=== PATIENT | female | born 1955 | race Caucasian/White ===

== ENCOUNTER → 2017-09-13 | Outpatient (CLI) | payer OTHER | LOC: FIMAGING 14:26 | PROVIDERS: ATTEND Family Medicine | DX: Z12.2 Encounter for screening for malignant neoplasm of respiratory organs (principal); J43.2 Centrilobular emphysema; R91.1 Solitary pulmonary nodule; I70.0 Atherosclerosis of aorta; F17.200 Nicotine dependence, unspecified, uncomplicated ==

== ENCOUNTER → 2018-01-26 | Outpatient (CLI) | payer OTHER | LOC: BMCIMAGING 15:18 | PROVIDERS: ATTEND Family Medicine | DX: S32.10XA Unspecified fracture of sacrum, initial encounter for closed fracture (principal); W19.XXXA Unspecified fall, initial encounter ==

== ENCOUNTER 2018-01-31 10:06 | Inpatient (IN) | payer OTHER ==
[2018-01-31] MEDS ORDERED: DIAZEPAM 5 MG/ML 1 ML SYR IVP ONE (10:13)
--- NOTE | 2018-01-31 10:17 | EDPHY ---
H & P Time Seen by Provider: 01/31/18 10:07 HPI/ROS: CHIEF COMPLAINT: Gluteal pain HISTORY OF PRESENT ILLNESS: Patient is a 62-year-old female who states that 1 week ago she slipped on the step and fell into a sitting position. She thought she was fine at the time but the next day had increasing pain. She presented to the urgent care where x-rays were done and she is diagnosed with a coccyx fracture. She was prescribed Flexeril. She states that she has had increasing daily pain since that time. She states that she is having spasming in her gluteus muscles and severe pain if she tries to move. She is able to move her legs. She has not had any bowel or bladder incontinence or retention but is extremely hesitant to get up to go to the bathroom because of pain. No focal weakness or paresthesias. No vomiting. No diarrhea. She was given 100 mcg of fentanyl by EMS. She does not have any lumbar thoracic or cervical spine pain or tenderness. REVIEW OF SYSTEMS: Constitutional: denies: chills, fever, recent illness, recent injury EENTM: denies: blurred vision, double vision, nose congestion Respiratory: denies: cough, shortness of breath Cardiac: denies: chest pain, irregular heart rate, lightheadedness, palpitations Gastrointestinal/Abdominal: denies: abdominal pain, diarrhea, nausea, vomiting, blood streaked stools Genitourinary: denies: dysuria, frequency, hematuria, pain Musculoskeletal: See HPI Skin: denies: lesions, rash, jaundice, bruising Neurological: denies: headache, numbness, paresthesia, tingling, dizziness, weakness Hematologic/Lymphatic: denies: blood clots, easy bleeding, easy bruising Immunologic/allergic: denies: HIV/AIDS, transplant EXAM: GENERAL: Moderate distress. HEAD: Atraumatic, normocephalic. EYES: Pupils equal round and reactive to light, extraocular movements intact, sclera anicteric, conjunctiva are normal. ENT: TMs normal, nares patent, oropharynx clear without exudates. Moist mucous membranes. NECK: Normal range of motion, supple without lymphadenopathy or JVD. LUNGS: Breath sounds clear to auscultation bilaterally and equal. No wheezes rales or rhonchi. HEART: Regular rate and rhythm without murmurs, rubs or gallops. ABDOMEN: Soft, nontender, normoactive bowel sounds. No guarding, no rebound. No masses appreciated. BACK: Gluteal pain, tender over the tailbone and pain moving or rolling. No CVA tenderness, no spinal tenderness, step-offs or deformities EXTREMITIES: Normal range of motion, no pitting or edema. No clubbing or cyanosis. NEUROLOGICAL: Cranial nerves II through XII grossly intact. Normal speech, normal gait. 5/5 strength, normal movement in all extremities, normal sensation PSYCH: Normal mood, normal affect. SKIN: Warm, dry, normal turgor, no visible rashes or lesions. Source: Patient Exam Limitations: No limitations - Medical/Surgical History Hx Asthma: No Hx Chronic Respiratory Disease: No Hx Diabetes: No Hx Cardiac Disease: No Hx Renal Disease: No Hx Cirrhosis: No Hx Alcoholism: No Hx HIV/AIDS: No Hx Splenectomy or Spleen Trauma: No - Family History Significant Family History: No pertinent family hx - Social History Smoking Status: Never smoked Alcohol Use: Sober Constitutional: Initial Vital Signs Temperature (C) 36.7 C 01/31/18 10:10 Heart Rate 104 H 01/31/18 10:10 Respiratory Rate 18 01/31/18 10:10 Blood Pressure 134/89 H 01/31/18 10:10 O2 Sat (%) 95 01/31/18 10:10 O2 Delivery Mode Room Air O2 (L/minute) 2 Allergies/Adverse Reactions: No Known Allergies Allergy (Unverified 01/31/18 10:17) Home Medications: Medication Instructions Recorded Aspirin [Aspirin 325 mg (*)] 325 mg PO DAILY 01/31/18 Cyclobenzaprine [Flexeril 10 MG 10 mg PO TID PRN 01/31/18 (*)] Ibuprofen [Motrin (*)] 200 mg PO Q4-6PRN PRN 01/31/18 Multivitamins [Multivitamin (*)] 1 each PO DAILY 01/31/18 Tretinoin [Retin-A] 1 nayla TP DAILY 01/31/18 Medical Decision Making - Diagnostics Imaging: Discussed imaging studies w/ tour counselor Radiologist ED Course/Re-evaluation: 12:15 p[address]. we discussed the CT results. The patient and are reassured. She does not have trouble urinating. She is able to control her urination. She feels much better after Valium. I will prescribe her this to take at home. We discussed indications for returning. We discussed follow-up. Patient is having trouble getting up and out of bed, I will admit her for pain control. Differential Diagnosis: Partial list of the Differential diagnosis considered include but were not limited to; muscle spasm, tailbone fracture, pelvic fracture, lumbar fracture and although unlikely based on the history and physical exam, I also considered spinal cord injury, neuropathy, infection. I discussed these differential diagnoses and the plan with the patient as well as the usual and expected course. The patient understands that the diagnosis is provisional and that in medicine we are not always correct and that further workup is often warranted. Usual and customary warnings were given. All of the patient's questions were answered. The patient was instructed to return to the emergency department should the symptoms at all worsen or return, otherwise to followup with the physician as we discussed. - Data Points Laboratory Results: Laboratory Results 01/31/18 16:50 Medications Given: Acetaminophen (Tylenol) 1,000 mg PO TID [facility] Stop: 07/30/18 21:59 Last Admin: 02/02/18 09:18 Dose: Not Given Diazepam (Valium) 5 mg PO Q6HRS PRN PRN Reason: Anxiety, Able to Take PO Stop: 07/30/18 16:31 Last Admin: 02/02/18 12:02 Dose: 5 mg Enoxaparin Sodium (Lovenox) 40 mg SC DAILY [facility] Stop: 07/31/18 08:59 Last Admin: 02/02/18 09:02 Dose: 40 mg Ketorolac Tromethamine (Toradol) 15 mg IVP Q6HRS [facility] Stop: 02/06/18 00:00 Last Admin: 02/02/18 12:04 Dose: Not Given Methylprednisolone (Medrol) 4 mg PO 0730,1300,1900,2100 [facility] Stop: 02/02/18 21:01 Last Admin: 02/02/18 13:59 Dose: 4 mg Miscellaneous Information (Patch Removal) 1 ea TD DAILY21 [facility] Stop: 07/31/18 20:59 Last Admin: 02/01/18 23:03 Dose: Not Given Miscellaneous Medication (Tretinoin [Retin-A]) 1 nayla TP DAILY [facility] Stop: 07/31/18 08:59 Last Admin: 02/02/18 09:04 Dose: Not Given Miscellaneous Medication (Icy Hot Lidocaine/Menthol 4%/1% Patch) 1 patch TD DAILY [facility] Stop: 07/31/18 09:44 Last Admin: 02/02/18 09:03 Dose: 1 patch Multivitamins (Tab-A-Debbie) 1 each PO DAILY [facility] Stop: 07/31/18 08:59 Last Admin: 02/02/18 09:03 Dose: 1 each Nicotine (Nicoderm Cq) 21 mg TD DAILY [facility] Stop: 07/30/18 17:14 Last Admin: 02/02/18 09:04 Dose: 21 mg Oxycodone HCl (Oxycodone Ir) 5 mg PO Q6 PRN PRN Reason: Pain, Severe Able to Take PO Stop: 02/10/18 16:52 Last Admin: 02/02/18 10:32 Dose: 5 mg Polyethylene Glycol (Miralax) 17 gm PO DAILY PRN; Protocol PRN Reason: Constipation, patient prefers Stop: 07/30/18 19:25 Last Admin: 02/01/18 15:59 Dose: 17 gm Senna/Docusate Sodium (Senokot-S) 1 - 2 tab PO BID [facility] PRN Reason: Protocol Stop: 07/30/18 20:59 Last Admin: 02/02/18 09:02 Dose: 2 tab Discontinued Medications Diazepam (Valium) 5 mg IVP EDNOW ONE Stop: 01/31/18 10:14 Last Admin: 01/31/18 10:30 Dose: 5 mg Hydromorphone HCl (Dilaudid) 0.5 mg IVP EDNOW ONE Stop: 01/31/18 12:44 Last Admin: 01/31/18 12:49 Dose: 0.5 mg Methylprednisolone (Medrol) 8 mg PO BID@1700,2100 [facility] Stop: 01/31/18 21:01 Last Admin: 01/31/18 21:45 Dose: 8 mg Methylprednisolone (Medrol) 4 mg PO BID@1800,1900 [facility] Stop: 01/31/18 19:01 Last Admin: 01/31/18 19:17 Dose: 4 mg Methylprednisolone (Medrol) 4 mg PO 0730,1300,1900 [facility] Stop: 02/01/18 19:01 Last Admin: 02/01/18 20:20 Dose: 4 mg Methylprednisolone (Medrol) 8 mg PO [facility] Stop: 02/01/18 21:01 Last Admin: 02/01/18 21:20 Dose: 8 mg Departure - Departure Disposition: [facility] Inpatient Acute Clinical Impression: Severe pain Sacral fracture, closed Qualifiers: Encounter type: initial encounter Zone of sacrum fracture: unspecified portion of sacrum Qualified Code(s): S32.10XA - Unspecified fracture of sacrum, initial encounter for closed fracture Condition: Fair
[2018-01-31] MEDS ORDERED: HYDROmorphONE/DILAUDID 2 MG/ML INJ IVP ONE (12:43)
[2018-01-31] MEDS ORDERED: ONDANSETRON 4 MG/2 ML VIAL IVP PRN (13:42)
[2018-01-31] MEDS ORDERED: ONDANSETRON DISINTEGRATING 4 MG TAB PO PRN (13:42)
[2018-01-31] MEDS ORDERED: ACETAMINOPHEN 325 MG TAB PO PRN (13:42)
--- NOTE | 2018-01-31 17:28 | GHP ---
[f rep st] HISTORY AND PHYSICAL DATE OF ADMISSION: 01/31/2018 CHIEF COMPLAINT: Buttock pain. HISTORY OF PRESENT ILLNESS: A 62-year-old female with history of COPD, COPD, presenting with intractable buttock pain. She was entertaining guests on January 24 , was carrying a tray and then fell, landing on her buttocks. The pain was not too significant then. She presented to Urgent Care on the , had an x-ray done. She was diagnosed with a coccyx fracture. She had minimal relief with Flexeril that they prescribed. She has had increased pain since that time. She is having spasms, bilateral glutes, to the point where she is shaking. She is unable to stand from sitting. She has been constipated for 10 days. She has had minimal urine output because every time she attempts to urinate she is uncomfortable in a squatting position, thus stops. No nausea, vomiting, or diarrhea. She denies focal weakness or numbness, but says the bottoms of her feet feel different. She has also developed shooting pain from left buttock to her calf. She has been taking both Tylenol and Advil and having better results with the NSAID. She has been taking up to 1000 mg daily. REVIEW OF SYSTEMS: I completed a 10-point review of systems, negative except as noted in HPI. PAST MEDICAL HISTORY: 1. COPD. 2. Tobacco history. PAST SURGICAL HISTORY: Tonsillectomy. ALLERGIES: None. MEDICATIONS: Advil 8-10 tabs a day and Tylenol 325. FAMILY HISTORY: Mother healthy. Dad with heart disease. SOCIAL HISTORY: She is an senior accountant analyst. Tobacco: A pack a day. Occasional alcohol. PHYSICAL EXAMINATION: VITAL SIGNS: Temperature 36.6, blood pressure 133/77, heart rate is in the 80s, respirations 16, 94% on 2 L. GENERAL: Lying in bed, mildly uncomfortable. HEENT: PERRLA. Moist mucous membranes. CV: Regular rate and rhythm, 1/6 murmur. RESPIRATORY: Lungs are clear anteriorly. ABDOMEN : Soft, nontender, nondistended. Positive bowel sounds. : Marked bladder distention. No tenderness. MUSCULOSKELETAL: 5/5 upper strength. Lower extremity limited due to pain. Has better range of motion with passive extension. NEURO: 2 through 12 intact. Normal sensation over lower extremities to touch. Normal proprioception. DIAGNOSTIC STUDIES: Lumbar spine CT: Nondisplaced right L5 transverse process fracture. Nondisplaced comminuted sacral fracture. Marked bladder distention. Lumbar spine MRI: Slight central clumping of the nerve roots, which can be seen in arachnoiditis. No visible epidural hematoma. L2-L3, moderate spinal canal narrowing with [id number] left neural foraminal stenosis. L4-L5 moderate spinal canal narrowing with minimal right neural foraminal stenosis. ASSESSMENT AND PLAN: 1. Nondisplaced sacral fracture: fall a week ago. Will control pain with IV Toradol. Creatinine stable. Start Medrol Farooq and Valium. Scheduled Tylenol. 2. Left leg radiculopathy: No evidence of spinal compromise on imaging. I have discussed case with Dr. Parisi, who will evaluate patient in the morning. Pain control as above. Physical therapy/Occupational therapy. 3. Tobacco abuse. Nicotine patch. 4. Constipation. Bowel regimen. Likely due to pain. 5. Urinary retention: constipation and pain contributing. If not urinating on own, will have a Kim placed. 6. Diet: Regular. 7. Deep venous thrombosis prophylaxis: Lovenox next. DISPOSITION: Patient warrants observation admission given uncontrolled pain warranting steroids, Valium, and PT, as well as Neurosurgery consultation. /[id number]/MODL MTDD
[2018-01-31] MEDS: methylPREDNISolone 4 MG TAB PO SCH ×4 (17:55→21:45)
[2018-01-31] MEDS: NICOTINE 21 MG/24 HR PATCH TD SCH (17:59)
[2018-01-31] MEDS: oxyCODONE IR 5 MG TAB PO PRN (19:18)
[2018-01-31] MEDS ORDERED: BISACODYL 10 MG SUPP PR PRN (19:26)
[2018-01-31] MEDS ORDERED: POLYETHYLENE GLYCOL 3350 17 GM PKT PO PRN (19:26)
[2018-01-31] MEDS ORDERED: LACTULOSE 20 GM/30 ML UDCUP PO PRN (19:26)
[2018-01-31] MEDS ORDERED: MAGNESIUM HYDROXIDE 30 ML UDCUP PO PRN (19:26)
[2018-01-31] MEDS: SENNOSIDES/DOCUSATE SODIUM TAB PO SCH (21:45)
[2018-01-31] MEDS: ACETAMINOPHEN 500 MG TAB PO SCH (21:45)
[2018-01-31] MEDS: KETOROLAC 15 MG/1 ML SDV IVP SCH (23:41)
[2018-02-01] MEDS: KETOROLAC 15 MG/1 ML SDV IVP SCH ×3 (06:17→18:58)
--- NOTE | 2018-02-01 07:48 | SOAPPROG ---
Downtime Inpatient MD Late Entry SOAP Note: Patient seen and examined. Supportive care needed. Needs PT OT evaluation and time to resolve injury. We will follow. -yaritza kennedy md
--- NOTE | 2018-02-01 08:22 | GCON ---
[f rep st] CONSULTATION NEUROSURGICAL CONSULTATION DATE OF CONSULTATION: 02/01/2018 LOCATION: [address] REASON FOR CONSULTATION: Comminuted sacral fracture. HISTORY OF PRESENT ILLNESS: The patient is a 62-year-old who fell while carrying a tray into her home from her backyard on January 24. She thought she was fine and actually went to a movie later that day. The next day she had worse pain, and the following day the pain got even worse, and she was seen at [facility] in the Urgent Care Center and had an x-ray done, which was originally read as negative for fracture, but they called her later and said she did have a sacral fracture. The pain medications she was taking were NSAIDS and Tylenol. She began to have more difficulty urinating, but a lot of the difficulty she had urinating was related to pain and difficulty getting on and off the toilet. She apparently had had toilet downstairs in her house and a normal level toilet was up some stairs, and she was unable to go up and down stairs. The pain got worse and worse and she eventually came to the emergency room yesterday. She began initially 2 days ago, getting some discomfort radiating down the posterior aspect of the left leg in an S1 distribution and got some of this yesterday as well on the right side. She has denied any weakness in the legs whatsoever, and this morning she says she feels much, much better after just spending some time resting overnight. She does have a Kim catheter placed, because of the difficulty with urination. She denies any numbness, tingling in her perineal region. She also denies any changes in her sphincter tone. PAST MEDICAL HISTORY: Significant for COPD. PAST SURGICAL HISTORY: She had a tonsillectomy. ALLERGIES: None. MEDICATIONS: She takes Advil and Tylenol. FAMILY HISTORY: Her mother was healthy. Her dad had heart disease. SOCIAL HISTORY: She is an asset accountant. She does smoke a pack per day of cigarettes, and she occasionally drinks. PHYSICAL EXAM: VITAL SIGNS: Her temperature is 36.6, blood pressure 133/77. MUSCULOSKELETAL: Her strength in her tibialis anterior, plantar flexors, and extensor hallucis longus is 5/5 bilaterally. Her sensation of lower extremities is normal. DATA REVIEWED: CT scan of lumbar spine and sacrum demonstrated a highly comminuted bilateral sacral alar fracture, a right L5 TP fracture, and a transverse fracture through the S2 vertebral body without displacement. MRI of the lumbar spine, sacrum demonstrate no evidence of spinal canal compromise. She has multilevel lumbar spondylosis, and there some clumping of the nerve roots, but no evidence of epidural hematoma either in the sacral canal or the lumbar canal. ASSESSMENT: The patient has a painful comminuted sacral fracture, and has had some urinary retention related to severe pain. She has felt much better overnight here in the hospital. It is my feeling that she needs to work with therapies to ensure that she is able to ambulate and also go to the bathroom before discharge, and this may take some time. I do think a period of relaxation and bed rest is likely to help the pain associated with the fracture , but strict bedrest is not necessary. There is no need for surgical intervention in these fractures, and I do not think sacroplasty is indicated in acute traumatic bilateral sacral injuries such as this. She needs supportive care and time to resolve the injury. We will continue to follow while she is an inpatient. /[id number]/MODL MTDD
--- NOTE | 2018-02-01 08:50 | HOSPPROG ---
Hospitalist Progress Note Assessment/Plan: Patient is a 62-year-old female with history COPD who presented the emergency room with intractable buttock pain. On January 24 she was carrying a tray and fell landing on her buttocks. Initially she did not have any pain. Then on January 26 she had an x-ray done and was told she had a coccyx fracture. She was admitted for further care. Today is my 1st encounter with the patient chart reviewed. Appreciate Dr. Parisi's involvement. *comminuted sacral fracture w urinary retention -supportive care -started on Medrol dose pack -lidoderm pathch *Nicotine dependence -patch *mild hyponatremia *urinary retention -cordero placed in *constipation -due to the above -add bowel protocol *Plan: patient is having difficulty with sitting up in the bed, couldn't walk at home due to the pain. Will await input from PT and OT. She is unable to void because of not being able to stand up. She will require another midnight stay to see if we can help mobilize her to do ADL's. This will make her IP stay. Subjective: Carleen is c/o being able to get comfortable enough to eat breakfast this morning, having ongoing pain in the coccyx area. Objective: Vital Signs Temp Pulse Resp BP Pulse Ox 36.6 C 78 17 125/64 H 97 02/01/18 08:00 02/01/18 08:00 02/01/18 08:00 02/01/18 08:00 02/01/18 08:00 Laboratory Results 01/31/18 16:50 01/31/18 02/01/18 02/02/18 05:59 05:59 05:59 Intake Total 500 Output Total 2000 Balance -1500 - Physical Exam Constitutional: uncomfortable, No not in pain Eyes: PERRL Ears, Nose, Mouth, Throat: hearing normal Cardiovascular: regular rate and rhythym Respiratory: no respiratory distress Genitourinary: cordero in urethra Skin: warm Musculoskeletal: muscular tenderness, generalized weakness Neurologic: AAOx3 Psychiatric: interacting appropriately ICD10 Worksheet Patient Problems: Problems Problem Status Onset Sacral fracture, closed Acute Severe pain Acute
[2018-02-01] MEDS: TRETINOIN TP SCH (09:24)
[2018-02-01] MEDS: NICOTINE 21 MG/24 HR PATCH TD SCH (09:25)
[2018-02-01] MEDS: ACETAMINOPHEN 500 MG TAB PO SCH ×3 (09:26→21:19)
[2018-02-01] MEDS: methylPREDNISolone 4 MG TAB PO SCH ×3 (09:27→20:20)
[2018-02-01] MEDS: SENNOSIDES/DOCUSATE SODIUM TAB PO SCH ×2 (09:27→21:20)
[2018-02-01] MEDS: ENOXAPARIN 40 MG/0.4 ML SYR SC SCH (09:28)
[2018-02-01] MEDS: MULTIVITAMINS 1 EACH TAB PO SCH (09:28)
[2018-02-01] MEDS: LIDOCAINE 4%/MENTHOL 1% PATCH TD SCH (15:01)
--- NOTE | 2018-02-01 15:13 | ASMTCMCOM ---
CM Note CM Note Notes: Pt in with sacral fx after fall at home. Nsg consulting, non-operative fx. PT/OT evals pending. CM to follow for d/c planning. Date Signed: 02/01/2018 03:12 PM Electronically Signed By:LUCILA Childs
--- NOTE | 2018-02-01 16:05 | PDMN ---
Medical Necessity Medical necessity: MCG: GRG Musculoskeletal disease fx of sacrum with urinary retention- pt with persistent pain, difficulty ambulating , difficulty urinating ( cordero in place) , constipation, pt will have PT, OT ongoing med nec due to above status change 02/01/18 @ 1534
[2018-02-01] MEDS ORDERED: methylPREDNISolone 4 MG TAB PO SCH (21:00)
[2018-02-01] MEDS: PATCH REMOVAL 1 EA PATCH TD SCH (23:03)
[2018-02-02] MEDS: KETOROLAC 15 MG/1 ML SDV IVP SCH ×4 (00:23→18:42)
[2018-02-02] MEDS: DIAZEPAM 5 MG TAB PO PRN ×3 (05:50→17:52)
[2018-02-02] MEDS: ENOXAPARIN 40 MG/0.4 ML SYR SC SCH (09:02)
[2018-02-02] MEDS: SENNOSIDES/DOCUSATE SODIUM TAB PO SCH ×2 (09:02→22:31)
[2018-02-02] MEDS: MULTIVITAMINS 1 EACH TAB PO SCH (09:03)
[2018-02-02] MEDS: LIDOCAINE 4%/MENTHOL 1% PATCH TD SCH (09:03)
[2018-02-02] MEDS: methylPREDNISolone 4 MG TAB PO SCH ×4 (09:03→22:31)
[2018-02-02] MEDS: NICOTINE 21 MG/24 HR PATCH TD SCH (09:04)
[2018-02-02] MEDS: TRETINOIN TP SCH (09:04)
[2018-02-02] MEDS: ACETAMINOPHEN 500 MG TAB PO SCH ×3 (09:18→22:32)
--- NOTE | 2018-02-02 09:22 | HOSPPROG ---
Hospitalist Progress Note Assessment/Plan: Patient is a 62-year-old female with history COPD who presented the emergency room with intractable buttock pain. On January 24 she was carrying a tray and fell landing on her buttocks. Initially she did not have any pain. Then on January 26 she had an x-ray done and was told she had a coccyx fracture. She was admitted for further care. *comminuted sacral fracture w urinary retention -supportive care -started on Medrol dose pack -Lidoderm patch -still hasn't been able to get OOB -PT and OT to see -she only wants to go home, has stairs so I'm concerned she will have difficulty getting into her home, is supportive -had some gluteal spasms last night relieved with Valium *Nicotine dependence -patch *mild hyponatremia *urinary retention -cordero placed in (will try removing once she can be somewhat mobile) *constipation -due to the above -add bowel protocol *Plan:await to see what PT & OT recommends. Subjective: Carleen said it is still extremely painful to sit up in the bed. Objective: Vital Signs Temp Pulse Resp BP Pulse Ox 36.6 C 84 18 152/82 H 95 02/02/18 08:00 02/02/18 08:00 02/02/18 08:00 02/02/18 08:00 02/02/18 04:00 02/01/18 02/02/18 02/03/18 05:59 05:59 05:59 Intake Total 500 Output Total 350 Balance 150 - Physical Exam Constitutional: appears nourished, uncomfortable Eyes: PERRL Ears, Nose, Mouth, Throat: hearing normal Cardiovascular: regular rate and rhythym Respiratory: no respiratory distress Gastrointestinal: normoactive bowel sounds Genitourinary: cordero in urethra Skin: warm Musculoskeletal: muscular tenderness Neurologic: AAOx3 Psychiatric: interacting appropriately ICD10 Worksheet Patient Problems: Problems Problem Status Onset Sacral fracture, closed Acute Severe pain Acute
[2018-02-02] MEDS: oxyCODONE IR 5 MG TAB PO PRN ×2 (10:32→22:31)
--- NOTE | 2018-02-02 12:54 | NEUSURGPN ---
Assessment/Plan: 62 yo female fall on 01/24 and suffered bilateral sacral ala fxs and transverse S2 fx, L5 TP fx. Came in over worsening pain and some urinary retention -Nothing to do from our standpoint for L5 TP fx. -Urinary retention most likely related to pain meds. She is urinating better. Still has not had BM but on bowel protocol -Nothing to do for Sacral fractures, pain control, PT and time -Neurosurgery to sign off at this time, follow up with Team Isak in 3-4 weeks S: Patient had some acute spasms in her buttocks last night but is better this morning after Valium O: NAD, VSS Pain with hip flexion but BLE 5/5= Sensation intact to lt touch Catheter Insertion Date: 01/31/18 - Physician Discussed Patient with : Isak Neurosurgery Physical Exam - Vitals, I&O, Labs I and O 02/01/18 02/02/18 02/03/18 05:59 05:59 05:59 Intake Total 500 Output Total 350 Balance 150 Intake: Oral (ml) 500 Output: Urine (ml) 350 Catheter 350 Other: Intake Quantity Yes Sufficient Vital Signs Temp Pulse Resp BP Pulse Ox 36.6 C 84 18 152/82 H 95 02/02/18 08:00 02/02/18 08:00 02/02/18 08:00 02/02/18 08:00 02/02/18 04:00 ICD10 Worksheet Patient Problems: Problems Problem Status Onset Sacral fracture, closed Acute Severe pain Acute
--- NOTE | 2018-02-02 16:38 | ASMTCMCOM ---
CM Note CM Note Notes: OT/PT rec SNF. Pt provided SNF list. Pt reports she has a lot of experience with local SNFs as her mother has been in several. Pt is motivated to get home with HHC pending pain under control and she is able to urinate. CM to follow pt progress. Date Signed: 02/02/2018 04:38 PM Electronically Signed By:LUCILA Childs
[2018-02-02] MEDS: PATCH REMOVAL 1 EA PATCH TD SCH (22:34)
[2018-02-03] MEDS: KETOROLAC 15 MG/1 ML SDV IVP SCH ×4 (00:22→16:17)
[2018-02-03] MEDS: methylPREDNISolone 4 MG TAB PO SCH ×3 (08:24→20:40)
[2018-02-03] MEDS: SENNOSIDES/DOCUSATE SODIUM TAB PO SCH ×2 (08:24→20:40)
[2018-02-03] MEDS: oxyCODONE IR 5 MG TAB PO PRN ×3 (08:24→22:13)
[2018-02-03] MEDS: ACETAMINOPHEN 500 MG TAB PO SCH ×3 (08:24→23:05)
[2018-02-03] MEDS: MULTIVITAMINS 1 EACH TAB PO SCH (08:24)
[2018-02-03] MEDS: NICOTINE 21 MG/24 HR PATCH TD SCH (08:25)
[2018-02-03] MEDS: ENOXAPARIN 40 MG/0.4 ML SYR SC SCH (08:25)
[2018-02-03] MEDS: LIDOCAINE 4%/MENTHOL 1% PATCH TD SCH (08:25)
[2018-02-03] MEDS: TRETINOIN TP SCH (08:26)
[2018-02-03] MEDS ORDERED: PNEUMOCOCCAL 0.5ML VACCINE VIAL IM ONE (08:44)
[2018-02-03] MEDS: DIAZEPAM 5 MG TAB PO PRN ×3 (09:26→22:11)
--- NOTE | 2018-02-03 13:36 | ASMTCMCOM ---
CM Note CM Note Notes: Today OT still rec SNF, PT rec HHC/SNF. Pt still wants to go home. Pt PCP not listed in [facility], it is needed for HHC, pt reports PCP is Dr. Aracelis Macdonald. CM to follow pt progress. Date Signed: 02/03/2018 01:35 PM Electronically Signed By:LUCILA Childs
[2018-02-03] MEDS ORDERED: MAGNESIUM CITRATE 300 ML BOTTLE PO PRN (14:38)
--- NOTE | 2018-02-03 16:05 | HOSPPROG ---
Hospitalist Progress Note Assessment/Plan: Patient is a 62-year-old female with history COPD admitted with sacral fracture , L5 transverse process fracture, non-operative per neurosurgery *comminuted sacral fracture - mobility improving a bit today, got OOB and walked to BR -pain control with tylenol, toradol, lidoderm patch, prn oxy -complete medrol dose pack -prn valium for muscle spasm -cont PT/OT *Nicotine dependence -patch *mild hyponatremia - recheck in am *urinary retention - suspect 2/2 pain meds -likely d/c cordero tomorrow when her mobility is improved *constipation -due to the above -cont bowel protocol, add mag citrate *dvt pplx - lovenox Subjective: Pt doing better today. In good spirits. Got OOB and actually had less pain walking than sitting. Cordero in place. No BM for several days. Objective: Vital Signs Temp Pulse Resp BP Pulse Ox 37.2 C 79 15 111/75 96 02/03/18 11:41 02/03/18 11:41 02/03/18 11:41 02/03/18 11:41 02/03/18 11:41 02/02/18 02/03/18 02/04/18 05:59 05:59 05:59 Intake Total 500 500 400 Output Total 350 1250 Balance 150 -750 400 - Physical Exam Constitutional: no apparent distress Eyes: PERRL Ears, Nose, Mouth, Throat: moist mucous membranes Cardiovascular: regular rate and rhythym Respiratory: no respiratory distress Gastrointestinal: normoactive bowel sounds, soft, non-tender abdomen Skin: warm Musculoskeletal: full muscle strength Neurologic: AAOx3, sensation intact bilaterally Psychiatric: interacting appropriately ICD10 Worksheet Patient Problems: Problems Problem Status Onset Sacral fracture, closed Acute Severe pain Acute
[2018-02-03] MEDS: PATCH REMOVAL 1 EA PATCH TD SCH (20:40)
[2018-02-04] MEDS: KETOROLAC 15 MG/1 ML SDV IVP SCH ×4 (04:14→15:13)
[2018-02-04] MEDS: ENOXAPARIN 40 MG/0.4 ML SYR SC SCH (09:09)
[2018-02-04] MEDS: NICOTINE 21 MG/24 HR PATCH TD SCH (09:10)
[2018-02-04] MEDS: LIDOCAINE 4%/MENTHOL 1% PATCH TD SCH (09:10)
[2018-02-04] MEDS: methylPREDNISolone 4 MG TAB PO SCH ×2 (09:11→21:10)
[2018-02-04] MEDS: MULTIVITAMINS 1 EACH TAB PO SCH (09:11)
[2018-02-04] MEDS: ACETAMINOPHEN 500 MG TAB PO SCH ×3 (09:12→21:12)
[2018-02-04] MEDS: oxyCODONE IR 5 MG TAB PO PRN ×3 (09:12→23:47)
[2018-02-04] MEDS: SENNOSIDES/DOCUSATE SODIUM TAB PO SCH ×2 (09:13→21:11)
[2018-02-04] MEDS: TRETINOIN TP SCH (09:13)
--- NOTE | 2018-02-04 10:21 | HOSPPROG ---
Hospitalist Progress Note Assessment/Plan: Patient is a 62-year-old female with history COPD admitted with sacral fracture , L5 transverse process fracture, non-operative per neurosurgery *comminuted sacral fracture - mobility improving slowly -pain control with tylenol, toradol, lidoderm patch, prn oxy -complete medrol dose pack -prn valium for muscle spasm -cont PT/OT *Nicotine dependence -patch *mild hyponatremia - stable, near normal *urinary retention - suspect 2/2 pain meds -d/c cordero today *constipation - resolved, had large BM overnight -cont stool softener while on opiates *dvt pplx - lovenox *dispo - discussed will likely need SNF, cont to follow PT/OT recs, anticipate d /c either home with HC or SNF tomorrow. Subjective: Pt feels better today. Had a lot of BM's overnight. Pain controlled. She has been able to ambulate. No CP or SOB. Objective: Vital Signs Temp Pulse Resp BP Pulse Ox 36.8 C 82 16 115/73 95 02/04/18 07:45 02/04/18 07:45 02/04/18 07:45 02/04/18 07:45 02/04/18 07:45 Laboratory Results 02/04/18 04:26 02/03/18 02/04/18 02/05/18 05:59 05:59 05:59 Intake Total 500 1075 Output Total 1250 600 Balance -750 475 - Physical Exam Constitutional: no apparent distress Eyes: PERRL Ears, Nose, Mouth, Throat: moist mucous membranes Cardiovascular: regular rate and rhythym Respiratory: no respiratory distress Gastrointestinal: normoactive bowel sounds, soft, non-tender abdomen Skin: warm Musculoskeletal: full muscle strength Neurologic: AAOx3 Psychiatric: interacting appropriately, anxious ICD10 Worksheet Patient Problems: Problems Problem Status Onset Sacral fracture, closed Acute Severe pain Acute
[2018-02-04] MEDS: DIAZEPAM 5 MG TAB PO PRN ×2 (10:22→21:10)
--- NOTE | 2018-02-04 13:25 | ASMTCMCOM ---
CM Note CM Note Notes: A referral to [facility] was completed. CM to follow. D/C Plan: TBD Date Signed: 02/04/2018 01:24 PM Electronically Signed By:Maria G Daley
[2018-02-04] MEDS: PATCH REMOVAL 1 EA PATCH TD SCH (21:13)
[2018-02-05] MEDS: KETOROLAC 15 MG/1 ML SDV IVP SCH ×2 (00:27→05:12)
[2018-02-05] MEDS: DIAZEPAM 5 MG TAB PO PRN ×2 (03:58→12:25)
[2018-02-05] MEDS ORDERED: methylPREDNISolone 4 MG TAB PO SCH (07:30)
[2018-02-05 08:28] VITALS: BP 124/76
[2018-02-05] MEDS: ACETAMINOPHEN 500 MG TAB PO SCH ×2 (08:34→15:31)
[2018-02-05] MEDS: oxyCODONE IR 5 MG TAB PO PRN (08:34)
[2018-02-05] MEDS: MULTIVITAMINS 1 EACH TAB PO SCH (08:35)
[2018-02-05] MEDS: NICOTINE 21 MG/24 HR PATCH TD SCH (08:35)
[2018-02-05] MEDS: SENNOSIDES/DOCUSATE SODIUM TAB PO SCH (08:35)
[2018-02-05] MEDS: LIDOCAINE 4%/MENTHOL 1% PATCH TD SCH (08:38)
[2018-02-05] MEDS: ENOXAPARIN 40 MG/0.4 ML SYR SC SCH (08:39)
[2018-02-05] MEDS ORDERED: oxyCODONE IR 5 MG TAB PO PRN (11:46)
[2018-02-05] MEDS: TRETINOIN TP SCH (12:11)
--- NOTE | 2018-02-05 15:20 | PDIAF ---
- Diagnosis Diagnosis: sacral fracture Code Status: Full Code - Medication Management Discharge Medications: Medications to Continue on Transfer Aspirin [Aspirin 325 mg (*)] 325 mg PO DAILY 01/31/18 [Last Taken 01/31/18 06:00 ] Cyclobenzaprine [Flexeril 10 MG (*)] 10 mg PO TID PRN 01/31/18 [Last Taken 01/30] Ibuprofen [Motrin (*)] 200 mg PO Q4-6PRN PRN 01/31/18 [Last Taken 01/31/18 06:00 ] Multivitamins [Multivitamin (*)] 1 each PO DAILY 01/31/18 [Last Taken Unknown] Tretinoin [RETIN-A] 1 nayla TP DAILY 01/31/18 [Last Taken 01/31/18] Acetaminophen [Tylenol ES 500 mg (*)] 1,000 mg PO TID tab 02/05/18 [Last Taken Unknown] Lidocaine 4%/Menthol 1% [Icy Hot Lidocaine/Menthol 4%/1% Patch (*)] 1 patch TD DAILY #30 patch 02/05/18 [Last Taken Unknown] Patch Removal 1 ea TD DAILY21 patch 02/05/18 [Last Taken Unknown] Sennosides/Docusate Sodium [Senokot-S] 1 - 2 tab PO BID PRN #30 tab 02/05/18 [ Last Taken Unknown] oxyCODONE IR [Oxycodone Ir (*)] 5 - 10 mg PO Q6 PRN #10 tab 02/05/18 [Last Taken Unknown] Discharge Medications: Refer to the Discharge Home Medication list for PRN reason. PICC Care - Routine: N/A - Orders Services needed: Home Care, Physical Therapy, Occupational Therapy Home Care Face to Face: I certify that this patient was under my care and that I had the required [id number] encounter meeting the encounter requirements on the discharge day. My findings support the fact that the patient is homebound as defined in Home Care Face to Face Continued: CMS Chapter 7 Medicare Benefits Manual 30.1.1 , The condition of the patient is such that there exists a normal inability to leave home and consequently, leaving home would require a considerable and taxing effort. Diet Recommendation: no restrictions on diet Additional Instructions: Activity as tolerated, continue PT exercises at home. Home health care is ordered. - Follow Up Care Current Providers and Referrals: Flor Parisi MD [Medical Doctor] - (Follow up in 3-[address] Parisi. [phone]) Patient,NotPresent [Unknown] - As per Instructions
--- NOTE | 2018-02-05 16:57 | ASMTLACE ---
LACE Length of stay for Answers: 4-6 days current admission Comorbidities - select Answers: Chronic pulmonary disease all that apply # of Emergency department Answers: 1-2 visits in the last 6 months Score: 7 Date Signed: 02/05/2018 04:57 PM Electronically Signed By:Joselin Johnson LCSW
--- NOTE | 2018-02-05 17:00 | ASMTDCNOTE ---
Case Management Discharge Discharge Order Complete? Answers: Yes Patient to Obtain Answers: via Family Medications Transportation Arranged Answers: Family/Friends Transport will Pick (Date 02/05/2018 05:00 PM & Time) Faxed Final Orders Answers: Yes Notes: [facility] Family Notified Answers: Yes Notes: to transport Discharge Comments Notes: Patient has been discharged home w/[facility] and her . PT will not be able to see patient until Tuesday. Patient given this information. Date Signed: 02/05/2018 04:59 PM Electronically Signed By:Joselin Johnson LCSW
--- NOTE | 2018-02-05 17:01 | ASDISCHSUM ---
Discharge Information Plan Status:Home with Home Health Medically Cleared to Leave:02/05/2018 Discharge Date:02/05/2018 CM D/C Disposition:Home Health Service ADT D/C Disposition:Home, Routine, Self-Care Projected Discharge Date:02/05/2018 05:00 PM Transportation at D/C:Family Discharge Delay Reason: Follow-Up Date:02/05/2018 05:00 PM Discharge Slot: Final Diagnosis:Sacral fx Placement Information Referral Type:*Home Health Care Services Referral ID:[id number] Provider Name:[facility] Address 1[address] [address] Address 2: City:[place] Selection Factors: State:[place] Patient Contact Information Contact Name:PAULINE Relationship: Address:[address] [place] [address] Home Phone: City:[place] Alternate Phone: State/Zip Code:[place] [address] Email: Financial Information Financial Class:HMO and PPO Plans Primary Plan Desc:MELLISA Primary Plan Number:[id number] Secondary Plan Desc: Secondary Plan Number: Assessment Information LACE LACE Length of stay for Answers: 4-6 days current admission Comorbidities - select Answers: Chronic pulmonary disease all that apply # of Emergency department Answers: 1-2 visits in the last 6 months Score: 7 Date Signed: 02/05/2018 04:57 PM Electronically Signed By:Joselin Johnson LCSW [facility] Progress Note CM Note CM Note Notes: Pt in with sacral fx after fall at home. Nsg consulting, non-operative fx. PT/OT evals pending. CM to follow for d/c planning. Date Signed: 02/01/2018 03:12 PM Electronically Signed By:LUCILA Childs [facility] CM Progress Note CM Note CM Note Notes: OT/PT rec SNF. Pt provided SNF list. Pt reports she has a lot of experience with local SNFs as her mother has been in several. Pt is motivated to get home with [facility] pending pain under control and she is able to urinate. CM to follow pt progress. Date Signed: 02/02/2018 04:38 PM Electronically Signed By:LUCILA Childs [facility] CM Progress Note CM Note CM Note Notes: Today OT still rec SNF, PT rec HHC/SNF. Pt still wants to go home. [facility], it is needed for HHC, pt reports PCP is Dr. Aracelis Macdonald. CM to follow pt progress. Date Signed: 02/03/2018 01:35 PM Electronically Signed By:LUCILA Childs [facility] CM Progress Note CM Note CM Note Notes: A referral to [facility] was completed. CM to follow. D/C Plan: TBD Date Signed: 02/04/2018 01:24 PM Electronically Signed By:Maria G Daley Case Management Discharge Plan Note Case Management Discharge Discharge Order Complete? Answers: Yes Patient to Obtain Answers: via Family Medications Transportation Arranged Answers: Family/Friends Transport will Pick (Date 02/05/2018 05:00 PM & Time) Faxed Final Orders Answers: Yes Notes: [facility] Family Notified Answers: Yes Notes: to transport Discharge Comments Notes: Patient has been discharged home w/[facility] and her . PT will not be able to see patient until Tuesday. Patient given this information. Date Signed: 02/05/2018 04:59 PM Electronically Signed By:Joselin Johnson LCSW Intervention Information
--- NOTE | 2018-02-05 21:03 | GDS ---
[f rep st] DISCHARGE SUMMARY DISCHARGE DIAGNOSES: 1. Comminuted sacral fracture. 2. L5 transverse process fracture. 3. Urinary retention, resolved. 4. Constipation. 5. Nicotine dependence. CONSULTANTS: Court Parisi MD, neurosurgery. HISTORY: For details, please see the history and physical dated January 31, 2018. In brief, the alli vogel is a 62-year-old female with a history of COPD, who presented to the emergency department with butt ock pain after a fall 1 week prior to arrival. She was seen in urgent care 2 days after the fall occ urred and was diagnosed with a coccyx fracture. However, her pain increased and she returned to the emergency department. A lumbar spine CT revealed a nondisplaced right L5 transverse process fracture as well as a nondisplaced comminuted sacral fracture. She was admitted to the hospital for pain con trol and acute PT, OT. HOSPITAL COURSE: Patient was admitted to the med/surg unit. She received IV Toradol and scheduled T ylenol for pain control. In addition, p.r.n. oxycodone was provided, though she really did not take this. She had several days of acute PT, OT to work on strategies for ambulation and toileting. She did have a left leg radiculopathy, though there was no evidence of spinal compromise on imaging. Elisa rosurgery consulted and did not feel there was a surgical indication. She did have some urinary rete ntion which was thought secondary to pain medications. Her Kim was discontinued, and she voided wi thout difficulty for over 24 hours prior to discharge. DISPOSITION: Patient was discharged home with home health, PT, OT services in stable condition. DISCHARGE MEDICATIONS: Please see ixigo for completed outpatient medication list. New medication s on discharge include Tylenol 1000 mg p.o. t.i.d., lidocaine patch, oxycodone 5-10 mg p.o. q.6 hours p.r.n. #10 no refills, Senokot 1-2 tabs p.o. b.i.d. p.r.n. #30. She will continue all her outpatien t medications as previously prescribed. /[id number]/MODL
== END 2018-02-05 17:23 | disposition home health service (06) | DRG 552 ==
LOC: EDUNIT# → F3N 15:21 → OBSVTOIN 02-01 15:30
PROVIDERS: ADMIT Internal Medicine; ATTEND Hospitalist
DX: S32.14XA Type 1 fracture of sacrum, initial encounter for closed fracture (principal); S32.110A Nondisplaced Zone I fracture of sacrum, initial encounter for closed fracture; S32.058A Other fracture of fifth lumbar vertebra, initial encounter for closed fracture; E87.1 Hypo-osmolality and hyponatremia; T40.2X5A Adverse effect of other opioids, initial encounter; R33.0 Drug induced retention of urine; K59.00 Constipation, unspecified; M62.838 Other muscle spasm; F17.210 Nicotine dependence, cigarettes, uncomplicated; J44.9 Chronic obstructive pulmonary disease, unspecified; M48.061 Spinal stenosis, lumbar region without neurogenic claudication; W10.9XXA Fall (on) (from) unspecified stairs and steps, initial encounter; Y92.017 Garden or yard in single-family (private) house as the place of occurrence of the external cause; Y93.89 Activity, other specified; Y99.8 Other external cause status; Z82.49 Family history of ischemic heart disease and other diseases of the circulatory system; Z23 Encounter for immunization
CPT/HCPCS: 96374; 97116-GP; 97161-GP; 97165-GO; 97530-GO; 97530-GP; 97535-GO; G0009; G0378; G0480; J1170; J1650; J1885; J3360

== ENCOUNTER → 2018-03-31 | Outpatient (CLI) | payer OTHER | LOC: FIMAGING 15:36 | PROVIDERS: ATTEND Neurological Surgery | DX: S32.19XD Other fracture of sacrum, subsequent encounter for fracture with routine healing (principal); M51.36 Other intervertebral disc degeneration, lumbar region; M51.27 Other intervertebral disc displacement, lumbosacral region; M48.061 Spinal stenosis, lumbar region without neurogenic claudication; M48.07 Spinal stenosis, lumbosacral region ==

== ENCOUNTER → 2018-04-10 | Outpatient (CLI) | payer OTHER | LOC: BMCIMAGING 13:22 | PROVIDERS: ATTEND Family Medicine | DX: Z12.31 Encounter for screening mammogram for malignant neoplasm of breast (principal); Z13.820 Encounter for screening for osteoporosis; M81.0 Age-related osteoporosis without current pathological fracture; Z78.0 Asymptomatic menopausal state ==